=== PATIENT | female | born 1955 | race Caucasian/White ===

== ENCOUNTER 2017-06-30 08:56 | Emergency (ER) | payer OTHER ==
[~2017-06-30] VITALS: Ht 167.6 cm; Wt 92.1 kg
[2017-06-30] MEDS ORDERED: ZANAFLEX4 MG PO (09:26)
[2017-06-30] MEDS ORDERED: LISINOPRIL20 MG PO (09:26)
[2017-06-30] MEDS ORDERED: AMITRIPTYLINE H10 M3 PO (09:26)
[2017-06-30] MEDS ORDERED: HYDROCHLOROTHIA25 M2 PO (09:26)
[2017-06-30] MEDS ORDERED: VENTOLIN HFA 1818 GM INH (09:27)
[2017-06-30] MEDS ORDERED: ADVAIR HFA 230M12 GM INH (09:31)
[2017-06-30] MEDS ORDERED: NORCO 5-325 TA1 EACH PO (11:08)
[2017-06-30 11:44] VITALS: BP 00/000
== END 2017-06-30 11:47 | disposition home or self-care (01) ==
LOC: M.ERS 08:56
DX: S52.502A Unspecified fracture of the lower end of left radius, initial encounter for closed fracture (principal); S42.452A Displaced fracture of lateral condyle of left humerus, initial encounter for closed fracture; J45.909 Unspecified asthma, uncomplicated; I10 Essential (primary) hypertension; K21.9 Gastro-esophageal reflux disease without esophagitis; M79.7 Fibromyalgia; M41.9 Scoliosis, unspecified; G89.29 Other chronic pain; J30.81 Allergic rhinitis due to animal (cat) (dog) hair and dander; Z88.6 Allergy status to analgesic agent; Z88.2 Allergy status to sulfonamides; Z91.030 Bee allergy status